=== PATIENT | female | born 1990 | race Hispanic/Latino ===

== ENCOUNTER 2022-10-21 18:30 | Inpatient (IN) | payer MEDICAID ==
[~2022-10-21] VITALS: Ht 160 cm; Wt 108.9 kg
[2022-10-21 18:53] LABS: APPEARANCE,URINE CLEAR (CLEAR); BILIRUBIN,URINE NEGATIVE (NEGATIVE); COLOR,URINE LIGHT-YELLOW (YELLOW); GLUCOSE, URINE (UA) >=1000 mg/dL (NEGATIVE); KETONES,URINE 150 mg/dL (NEGATIVE); LEUKOCYTE ESTERASE ,URINE NEGATIVE Leu/uL (NEGATIVE); NITRATE,URINE NEGATIVE (NEGATIVE); OCCULT BLOOD,URINE MODERATE (NEGATIVE); PH,URINE 5.5 (5.0-8.0); PROTEIN,URINE 100 mg/dL (NEGATIVE); UROBILINOGEN,URINE 0.2 mg/dL (0.2-1.0)
[2022-10-21 18:55] LABS: BACTERIA,URINE FEW /HPF (None Seen); MUCUS,URINE RARE LPF (None Seen); RBC,URINE 26-50 /HPF (0-1); SQUAMOUS EPITHELIAL CELL,UR MOD /HPF (0-2); YEAST,URINE BUDDING FEW /HPF (None Seen)
[2022-10-21 18:56] LABS: HCG,QUALITATIVE URINE NEGATIVE (NEGATIVE)
[2022-10-21] MEDS ORDERED: 0.9%NACL 1000ML 2,000 ML IV ONE (20:30)
[2022-10-21 20:37] LABS: BASOPHILS % (AUTO) 0.3 % (0.0-5.0); LYMPHOCYTES % (AUTO) 23.1 % (21.0-51.0); MEAN CORPUSCULAR VOLUME 84.8 fL (79-99); MONOCYTES % (AUTO) 7.4 % (3.0-13.0); NEUTROPHILS % (AUTO) 68.3 % (40.0-77.0); PLATELET COUNT (AUTO) 290 K/uL (130-400); RED BLOOD CELL COUNT(AUTO) 5.54 MIL/uL (4.00-5.50); RED CELL DISTRIBUTION WIDTH 12.9 % (11.0-15.5)
[2022-10-21] MEDS ORDERED: ONDANSETRON 4MG INJ ONE ×2 (20:48→21:32)
[2022-10-21 20:57] LABS: ALBUMIN 4.1 g/dL (3.5-5.0); CREATININE 1.4 mg/dL (0.5-1.5); POTASSIUM 4.6 mmol/L (3.5-5.1); TOTAL PROTEIN, SERUM 9.1 g/dL (6.0-8.3)
[2022-10-21] MEDS ORDERED: MAGNESIUM 2GM PREMIX 50ML 50 ML IV SCH ×2 (21:30→23:00)
[2022-10-21] MEDS ORDERED: MANNITOL 20% 250ML IV.SOLN IV SCH (21:30)
[2022-10-21] MEDS ORDERED: D5W-1/2 NS/20MEQ KCL 1,000 ML IV SCH ×2 (21:30→23:00)
[2022-10-21] MEDS ORDERED: INSULIN REGULAR, HUMAN 3ML 100 UNIT in 0.9%NACL 100ML 100 ML IV SCH ×4 (21:30→23:00)
[2022-10-21] MEDS ORDERED: 0.9%NACL 1000ML 1,000 ML IV SCH ×2 (21:30→23:00)
[2022-10-21 21:31] LABS: B-TYPE NATRIURETIC PEPTIDE 13 pg/mL (0-100)
[2022-10-21 21:48] LABS: ABG BASE EXCESS -22.8 mmol/L (-2.0-3.0); ABG HCO3 4.5 mmol/L (21.0-28.0); ABG OXYGEN SATURATION 96.8 % (95.0-99.0); ABG PCO2 15 mmHg (32-45)
[2022-10-21] MEDS ORDERED: INSULIN HUMULIN R 100 UNIT/ML 3ML ONE (22:29)
[2022-10-21] MEDS ORDERED: ONDANSETRON 4MG INJ IV PRN (23:00)
[2022-10-21] MEDS ORDERED: POTASSIUM CHLORIDE 10MEQ/100ML 100 ML IV PRN (23:00)
[2022-10-21] MEDS ORDERED: MORPHINE 4 MG SYG IV PRN (23:00)
[2022-10-21] MEDS ORDERED: ACETAMINOPHEN 325 MG TAB PO PRN ×2 (23:00)
[2022-10-21] MEDS ORDERED: MORPHINE 2 MG SYG IV PRN (23:00)
[2022-10-22] MEDS ORDERED: SODIUM BICARB 50MEQ 50ML VIAL IV STA (00:45)
[2022-10-22 03:19] LABS: CREATININE 1.1 mg/dL (0.5-1.5); POTASSIUM 4.2 mmol/L (3.5-5.1)
[2022-10-22 03:28] LABS: ABG BASE EXCESS -16.8 mmol/L (-2.0-3.0); ABG OXYGEN SATURATION 97.5 % (95.0-99.0); ABG PCO2 19 mmHg (32-45)
[2022-10-22] MEDS ORDERED: SODIUM BICARB 50MEQ 50ML VIAL IV ONE (07:00)
[2022-10-22 08:40] LABS: POTASSIUM 2.9 mmol/L (3.5-5.1)
[2022-10-22] MEDS: POTASSIUM CHLORIDE 10MEQ/100ML 100 ML IV PRN ×4 (08:47→16:38)
[2022-10-22] MEDS: OSELTAMIVIR PHOSPHATE 75 MG CAP PO SCH ×2 (09:18→21:31)
[2022-10-22] MEDS: FAMOTIDINE 20MG VIAL IV SCH (09:18)
[2022-10-22] MEDS: ENOXAPARIN SODIUM 40 MG/0.4 ML SYRINGE SQ SCH (09:19)
[2022-10-22 09:28] LABS: ABG BASE EXCESS -9.7 mmol/L (-2.0-3.0); ABG HCO3 14.1 mmol/L (21.0-28.0); ABG OXYGEN SATURATION 97.7 % (95.0-99.0); ABG PCO2 25 mmHg (32-45)
[2022-10-22] MEDS: INSULIN GLARGINE 100 UNITS/ML 10 ML VIAL SQ SCH (10:42)
[2022-10-22 11:47] LABS: CREATININE 0.9 mg/dL (0.5-1.5); POTASSIUM 3.2 mmol/L (3.5-5.1)
[2022-10-22 16:05] LABS: CREATININE 0.8 mg/dL (0.5-1.5); POTASSIUM 3.3 mmol/L (3.5-5.1)
[2022-10-22] MEDS: INSULIN HUMULIN R 100 UNIT/ML 3ML SQ SCH ×2 (16:38→21:00)
[2022-10-22] MEDS ORDERED: MAGNESIUM 2GM PREMIX 50ML 50 ML IV PRN (17:00)
[2022-10-22] MEDS ORDERED: POTASSIUM CHLORIDE 20MEQ/100ML 100 ML IV PRN ×2 (17:00)
[2022-10-22] MEDS ORDERED: POTASSIUM CHLORIDE 10% ELIXIR 20 MEQ/15 ML UDCUP PO PRN (17:00)
[2022-10-22] MEDS ORDERED: LACTATED RINGERS 1000ML IV SCH (17:30)
[2022-10-22 20:38] LABS: CREATININE 0.7 mg/dL (0.5-1.5); POTASSIUM 3.1 mmol/L (3.5-5.1)
[2022-10-22] MEDS: KCL 20 MEQ ERTAB PO PRN (22:25)
[2022-10-23 06:53] LABS: HEMATOCRIT 34.5 % (36-48); MEAN CORPUSCULAR HEMOGLOBIN 27.7 pg (27.0-33.0); MEAN CORPUSCULAR HGB CONC 34.2 g/dL (32.0-36.0); RED BLOOD CELL COUNT(AUTO) 4.26 MIL/uL (4.00-5.50); RED CELL DISTRIBUTION WIDTH 13.7 % (11.0-15.5); WHITE BLOOD COUNT (AUTO) 4.3 K/uL (4.8-10.8)
[2022-10-23 07:17] LABS: ALBUMIN 2.7 g/dL (3.5-5.0); CREATININE 0.7 mg/dL (0.5-1.5); PHOSPHORUS 1.3 mg/dL (2.5-4.9); POTASSIUM 3.2 mmol/L (3.5-5.1); THYROID STIMULATING HORMONE 4.74 uIU/mL (0.36-3.74); TOTAL PROTEIN, SERUM 6.1 g/dL (6.0-8.3); URIC ACID 6.5 mg/dL (2.6-7.2)
[2022-10-23] MEDS: INSULIN GLARGINE 100 UNITS/ML 10 ML VIAL SQ SCH (07:34)
[2022-10-23] MEDS: FAMOTIDINE 20MG VIAL IV SCH (07:34)
[2022-10-23] MEDS: ENOXAPARIN SODIUM 40 MG/0.4 ML SYRINGE SQ SCH (07:34)
[2022-10-23] MEDS: OSELTAMIVIR PHOSPHATE 75 MG CAP PO SCH ×2 (07:34→22:27)
[2022-10-23] MEDS: INSULIN HUMULIN R 100 UNIT/ML 3ML SQ SCH ×4 (07:34→21:00)
[2022-10-23] MEDS: KCL 20 MEQ ERTAB PO PRN ×2 (07:57→18:30)
[2022-10-23] MEDS ORDERED: LEVO75 PO (08:33)
[2022-10-23] MEDS ORDERED: ATOR40TA71 PO (08:33)
[2022-10-23] MEDS ORDERED: METF-444 PO (08:33)
[2022-10-23] MEDS: POTASSIUM PHOS 15 mMOL+NS250ML 250 ML IV ONE ×2 (09:29→09:32)
[2022-10-23 18:50] VITALS: BP 131/77; PULSE 88; RESP 17
[2022-10-23 20:00] VITALS: BP 124/74; PULSE 90; RESP 20
[2022-10-23 23:22] VITALS: BP 126/69; PULSE 85; RESP 20
[2022-10-24 04:00] VITALS: BP 116/64; PULSE 79; RESP 20
[2022-10-24 04:53] LABS: HEMATOCRIT 34.6 % (36-48); MEAN CORPUSCULAR HEMOGLOBIN 26.7 pg (27.0-33.0); MEAN CORPUSCULAR HGB CONC 33.5 g/dL (32.0-36.0); MEAN CORPUSCULAR VOLUME 79.7 fL (79-99); RED BLOOD CELL COUNT(AUTO) 4.34 MIL/uL (4.00-5.50); RED CELL DISTRIBUTION WIDTH 13.7 % (11.0-15.5); WHITE BLOOD COUNT (AUTO) 4.5 K/uL (4.8-10.8)
[2022-10-24 05:13] LABS: ALBUMIN 2.7 g/dL (3.5-5.0); CREATININE 0.7 mg/dL (0.5-1.5); MAGNESIUM 1.9 mg/dL (1.80-2.40); TOTAL PROTEIN, SERUM 6.2 g/dL (6.0-8.3)
[2022-10-24 05:14] LABS: POTASSIUM 2.7 mmol/L (3.5-5.1)
[2022-10-24] MEDS: KCL 20 MEQ ERTAB PO PRN ×4 (06:12→14:11)
[2022-10-24] MEDS: INSULIN HUMULIN R 100 UNIT/ML 3ML SQ SCH ×3 (07:17→17:00)
[2022-10-24 07:30] VITALS: O2SAT 100
[2022-10-24 08:00] VITALS: BP 108/67; PULSE 82; RESP 17
[2022-10-24] MEDS: OSELTAMIVIR PHOSPHATE 75 MG CAP PO SCH (08:57)
[2022-10-24] MEDS: FAMOTIDINE 20MG VIAL IV SCH (08:57)
[2022-10-24] MEDS: ENOXAPARIN SODIUM 40 MG/0.4 ML SYRINGE SQ SCH (08:58)
[2022-10-24] MEDS: INSULIN GLARGINE 100 UNITS/ML 10 ML VIAL SQ SCH (09:02)
[2022-10-24 11:22] VITALS: BP 106/65; PULSE 87; RESP 17
[2022-10-24] MEDS ORDERED: INSU100V3 SQ (12:25)
[2022-10-24] MEDS ORDERED: OSEL75 PO (12:25)
[2022-10-24] MEDS ORDERED: INSLAN SQ (12:25)
[2022-10-24 15:56] VITALS: BP 129/73; PULSE 87; RESP 17
[2022-10-24] MEDS ORDERED: KCL 20 MEQ ERTAB PO SCH (17:30)
[2022-12-08] MEDS ORDERED: LACTATED RINGERS 1000ML 1,000 ML IV ONE (09:30)
== END 2022-10-24 18:20 | disposition home or self-care (01) | DRG 420 ==
LOC: EDH 18:30 → EDHIP 18:31 → 4AH 10-23 18:50
PROVIDERS: ADMIT Internal Medicine; ATTEND Internal Medicine
DX: E10.10 Type 1 diabetes mellitus with ketoacidosis without coma (principal); N17.9 Acute kidney failure, unspecified; E66.01 Morbid (severe) obesity due to excess calories; E78.00 Pure hypercholesterolemia, unspecified; Z20.822 Contact with and (suspected) exposure to COVID-19; J11.1 Influenza due to unidentified influenza virus with other respiratory manifestations; Z68.41 Body mass index [BMI] 40.0-44.9, adult; Z79.84 Long term (current) use of oral hypoglycemic drugs; Z91.199 Patient's noncompliance with other medical treatment and regimen due to unspecified reason
CPT/HCPCS: 36415; 36600; 71045; 80048; 80053; 81001; 81025; 82010; 82435; 82803; 82947; 82948; 83036; 83605; 83735; 83880; 83930; 84100; 84132; 84295; 84443; 84484; 84550; 85018; 85025; 85027; 87635; 87804; 93005; 99291; 99292; C9803; G0378; J1650; J1815; J2405; J3475; J3480; J3490; J7030